=== PATIENT | female | born 1930 | race Caucasian/White ===

== ENCOUNTER 2017-03-29 09:29 | Inpatient (IN) | payer MEDICARE, OTHER ==
[~2017-03-29] VITALS: Ht 165.1 cm; Wt 80.4 kg
[~2017-03-29 09:29] MED LIST: ACET-1079 PO; ACET650S12 RE; ALBU0.084 IN; AMLO5TAB2 PO; ASPI81TA69 PO; BISA10SU12 RE; DIPH25CA39 PO; DOCU-137 PO; FURO40TA4 PO; HALO1TAB17 PO; HYDR4TAB21 PO; HYOSPOW SL; LACT10SO32 PO; LEVO-28 PO; LISI40TA PO; LOPE2TAB99 PO; LORA-352 PO; LORA1TAB12 PO; MENTOIN9 TOP; METH10TA97 PO; METO-281 PO; MOMLQ PO; NAPR500T31 PO; OMEP20TA85 PO; POTA-167 PO; PROMCRY PO; PROMCRY PR; SENN8.6T4 PO; SODIENE26 RE; [UNRECOGNIZED DRUG - CODE] PO; [UNRECOGNIZED DRUG - CODE] PO
[2017-03-29 10:23] LABS: Basophils # (auto) 0.1 uL; Eosinophils # (auto) 0.2 uL; Eosinophils % (auto) 3.3 % (0.0-7.0); Hematocrit 34.4 % (36.0-46.0); Hemoglobin 11.2 g/dL (12.2-16.2); Lymphocytes # (auto) 0.7 uL; Lymphocytes % (auto) 9.7 % (10.0-50.0); Mean Corpuscular Hemoglobin 28.6 pg (28.0-32.0); Mean Corpuscular Hgb Conc. 32.5 g/dL (32.0-36.0); Mean Corpuscular Volume 88.1 fL (80.0-100.0); Monocytes # (auto) 0.9 uL; Monocytes % (auto) 11.9 % (0.0-12.0); Neutrophils # (auto) 5.4 uL; Neutrophils % (auto) 74.1 % (37.0-80.0); Nucleated Red Blood Cells % 0.1 %; Platelet Count (auto) 230 10^3/uL (140-450); Red Cell Distribution Width 18.6 % (11.8-14.3); White Blood Cell 7.2 10^3/uL (4.4-10.8)
[2017-03-29 10:40] LABS: Albumin 3.3 g/dL (3.4-5.0); BUN/Creatinine Ratio 24.3; Bilirubin, Total 0.3 mg/dL (0.2-1.0); Calcium 9.9 mg/dL (8.5-10.1); Potassium 4.3 mmol/L (3.5-5.1); Total Protein 7.4 g/dL (6.4-8.2)
[2017-03-29 11:15] LABS: Urine Bacteria MANY /hpf (None Seen); Urine Blood 2+ /uL (Negative); Urine Mucus MANY (None Seen); Urine Specific Gravity 1.021 (1.001-1.035); Urine WBC 380 /hpf (0 - 5)
[2017-03-29] MEDS ORDERED: cefTRIAXone 1GM/10ml IVPUSH 10 ML IV ONE (12:15)
[2017-03-29 12:47] LABS: Magnesium 2.6 mg/dL (1.6-2.6)
[2017-03-29 12:53] LABS: INR 0.97 (0.9-1.15); Partial Thromboplastin Time 26.8 sec (22.64-33.71); Prothrombin Time 10.6 sec (9.37-12.3)
[2017-03-29] MEDS ORDERED: MORPHINE SULFATE 10 MG/ML INJ 1ML SDV IV PRN (13:45)
[2017-03-29] MEDS ORDERED: PROMETHAZINE HCL 25 MG/ML 1ML IV PRN (13:45)
[2017-03-29] MEDS ORDERED: TEMAZEPAM 15 MG CAP PO PRN (13:45)
[2017-03-29] MEDS ORDERED: NITROGLYCERIN 0.4 MG SL TAB SL PRN (13:45)
[2017-03-29] MEDS ORDERED: LORazepam 0.5 MG TAB PO PRN (13:45)
[2017-03-29] MEDS ORDERED: MORPHINE SULF INJ 2 MG/ML SYRINGE 1ML IV PRN (13:45)
[2017-03-29] MEDS ORDERED: HYDROcodone-ACET 5/325MG TAB PO PRN (13:45)
[2017-03-29] MEDS ORDERED: ACETAMINOPHEN 500 MG TAB PO PRN (13:45)
[2017-03-29] MEDS ORDERED: BISACODYL 10 MG RECT SUPP PR SCH (14:15)
[2017-03-29] MEDS ORDERED: HYDROmorphone HCL 2 MG TAB PO PRN (15:00)
[2017-03-29] MEDS: LACTULOSE 20Gm/30ML SOLN PO SCH (15:00)
[2017-03-29] MEDS ORDERED: PANTOPRAZOLE 40 MG TAB PO ONE (15:15)
[2017-03-29] MEDS: PSYLLIUM PWD 6 GM PKG PO SCH (15:15)
[2017-03-29] MEDS ORDERED: LORATADINE 10 MG TAB PO ONE (15:15)
[2017-03-29] MEDS ORDERED: ASPirin 81 mg TAB PO ONE (15:15)
[2017-03-29] MEDS ORDERED: ENOXAPARIN SOD 40 MG/0.4 ML SYRINGE SC ONE (15:15)
[2017-03-29] MEDS: SODIUM CHLORIDE 0.9% 1,000 ML IV SCH ×2 (15:28→23:44)
[2017-03-29] MEDS ORDERED: HALOPERIDOL 1 MG TAB PO SCH (16:00)
[2017-03-29 17:37] VITALS: BP 128/68
[2017-03-29] MEDS: ALUM & MAG HYDROX-SIMETH LIQ(MAALOX) 30 ML PO SCH (18:30)
[2017-03-29] MEDS: MILK OF MAGNESIA 30ML SUSP PO SCH (18:30)
[2017-03-29] MEDS: ALBUTEROL SULF 2.5 MG/0.5ML(0.5%) NEB SOLN NEB SCH ×2 (20:46→23:43)
[2017-03-29 20:51] VITALS: BP 114/58
[2017-03-29] MEDS: LORazepam 0.5 MG TAB PO SCH (21:20)
[2017-03-29] MEDS: DOCUSATE SOD 100 MG CAP PO SCH (21:20)
[2017-03-29] MEDS: METHADONE HCL 10 MG TAB PO SCH (21:20)
[2017-03-29] MEDS: SENNOSIDES DOCUSATE SODIUM PO SCH (21:32)
[2017-03-29] MEDS ORDERED: LORATADINE 10 MG TAB PO SCH (22:00)
[2017-03-29 22:25] VITALS: BP 119/60
[2017-03-30] MEDS: ALUM & MAG HYDROX-SIMETH LIQ(MAALOX) 30 ML PO SCH ×5 (02:00→18:00)
[2017-03-30] MEDS: MILK OF MAGNESIA 30ML SUSP PO SCH ×3 (02:21→10:44)
[2017-03-30 04:48] VITALS: BP 115/67
[2017-03-30] MEDS ORDERED: SODIUM CHLORIDE 0.9 % NEB SOLN 3ML NEB ONE ×2 (05:21→08:34)
[2017-03-30] MEDS: METHADONE HCL 10 MG TAB PO SCH ×3 (06:30→21:15)
[2017-03-30] MEDS: DOCUSATE SOD 100 MG CAP PO SCH ×3 (06:30→21:14)
[2017-03-30] MEDS: ALBUTEROL SULF 2.5 MG/0.5ML(0.5%) NEB SOLN NEB SCH ×3 (07:08→19:51)
[2017-03-30 07:18] LABS: Basophils # (auto) 0.1 uL; Eosinophils # (auto) 0.2 uL; Eosinophils % (auto) 2.6 % (0.0-7.0); Hematocrit 31.3 % (36.0-46.0); Hemoglobin 10.2 g/dL (12.2-16.2); Lymphocytes # (auto) 0.6 uL; Lymphocytes % (auto) 10.2 % (10.0-50.0); Mean Corpuscular Hemoglobin 28.8 pg (28.0-32.0); Mean Corpuscular Hgb Conc. 32.4 g/dL (32.0-36.0); Mean Corpuscular Volume 88.9 fL (80.0-100.0); Monocytes # (auto) 0.7 uL; Monocytes % (auto) 11.8 % (0.0-12.0); Neutrophils # (auto) 4.4 uL; Neutrophils % (auto) 74.4 % (37.0-80.0); Nucleated Red Blood Cells % 0.1 %; Platelet Count (auto) 203 10^3/uL (140-450); Red Blood Cells 3.53 10^6/uL (4.0-5.20); Red Cell Distribution Width 18.1 % (11.8-14.3); White Blood Cell 5.9 10^3/uL (4.4-10.8)
[2017-03-30 07:42] LABS: Albumin 2.9 g/dL (3.4-5.0); BUN/Creatinine Ratio 28.7; Bilirubin, Total 0.3 mg/dL (0.2-1.0); Calcium 9.5 mg/dL (8.5-10.1); Potassium 4.5 mmol/L (3.5-5.1); Total Protein 6.7 g/dL (6.4-8.2)
[2017-03-30 09:00] VITALS: BP 128/61
[2017-03-30] MEDS: SENNOSIDES DOCUSATE SODIUM PO SCH ×2 (10:00→21:19)
[2017-03-30] MEDS: cefTRIAXone 1GM/10ml IVPUSH 10 ML IV SCH (10:42)
[2017-03-30] MEDS: SODIUM CHLORIDE 0.9% 1,000 ML IV SCH ×2 (10:42→20:51)
[2017-03-30] MEDS: LORATADINE 10 MG TAB PO SCH (10:43)
[2017-03-30] MEDS: LACTULOSE 20Gm/30ML SOLN PO SCH (10:43)
[2017-03-30] MEDS: ASPirin 81 mg TAB PO SCH (10:43)
[2017-03-30] MEDS: PSYLLIUM PWD 6 GM PKG PO SCH (10:44)
[2017-03-30] MEDS: ENOXAPARIN SOD 40 MG/0.4 ML SYRINGE SC SCH (10:45)
[2017-03-30] MEDS: PANTOPRAZOLE 40 MG TAB PO SCH (10:45)
[2017-03-30 13:00] VITALS: BP 123/63
[2017-03-30] MEDS ORDERED: LEVOFLOXACIN 500MG 100 ML IV ONE (16:00)
[2017-03-30] MEDS ORDERED: SODIUM CHLORIDE 0.9% 1,000 ML IV ONE (16:00)
[2017-03-30 16:59] VITALS: BP 134/49
[2017-03-30] MEDS ORDERED: MORPHINE SULFATE 4 MG/ML SYR/VIAL IV PRN ×2 (20:00)
[2017-03-30 22:00] VITALS: BP 140/77
[2017-03-30] MEDS: LORazepam 0.5 MG TAB PO SCH (23:00)
[2017-03-31] MEDS: ALBUTEROL SULF 2.5 MG/0.5ML(0.5%) NEB SOLN NEB SCH ×4 (01:43→20:07)
[2017-03-31] MEDS: ALUM & MAG HYDROX-SIMETH LIQ(MAALOX) 30 ML PO SCH ×5 (02:46→18:00)
[2017-03-31 05:00] VITALS: BP 144/73
[2017-03-31] MEDS: SODIUM CHLORIDE 0.9% 1,000 ML IV SCH ×2 (05:44→15:34)
[2017-03-31] MEDS: METHADONE HCL 10 MG TAB PO SCH ×3 (06:04→21:50)
[2017-03-31] MEDS: DOCUSATE SOD 100 MG CAP PO SCH ×3 (06:04→21:50)
[2017-03-31 07:40] LABS: Basophils # (auto) 0 uL; Basophils % (auto) 0.7 % (0.0-2.0); Eosinophils # (auto) 0.1 uL; Eosinophils % (auto) 1.7 % (0.0-7.0); Hemoglobin 9.7 g/dL (12.2-16.2); Lymphocytes # (auto) 0.5 uL; Lymphocytes % (auto) 8.4 % (10.0-50.0); Mean Corpuscular Hemoglobin 28.8 pg (28.0-32.0); Mean Corpuscular Hgb Conc. 32.5 g/dL (32.0-36.0); Mean Corpuscular Volume 88.5 fL (80.0-100.0); Monocytes # (auto) 0.6 uL; Monocytes % (auto) 10.7 % (0.0-12.0); Neutrophils # (auto) 4.3 uL; Neutrophils % (auto) 78.5 % (37.0-80.0); Platelet Count (auto) 188 10^3/uL (140-450); Red Blood Cells 3.39 10^6/uL (4.0-5.20); Red Cell Distribution Width 17.4 % (11.8-14.3); White Blood Cell 5.5 10^3/uL (4.4-10.8)
[2017-03-31 07:55] LABS: Albumin 2.9 g/dL (3.4-5.0); BUN/Creatinine Ratio 18.8; Bilirubin, Total 0.3 mg/dL (0.2-1.0); Potassium 4.1 mmol/L (3.5-5.1); Total Protein 6.7 g/dL (6.4-8.2)
[2017-03-31 09:00] VITALS: BP 153/47
[2017-03-31] MEDS: SENNOSIDES DOCUSATE SODIUM PO SCH (10:00)
[2017-03-31] MEDS: ENOXAPARIN SOD 40 MG/0.4 ML SYRINGE SC SCH (10:28)
[2017-03-31] MEDS: ASPirin 81 mg TAB PO SCH (10:28)
[2017-03-31] MEDS: PANTOPRAZOLE 40 MG TAB PO SCH (10:28)
[2017-03-31] MEDS: PSYLLIUM PWD 6 GM PKG PO SCH (10:28)
[2017-03-31] MEDS: LORATADINE 10 MG TAB PO SCH (10:28)
[2017-03-31] MEDS: LEVOFLOXACIN 500MG 100 ML IV SCH (10:56)
[2017-03-31] MEDS: cefTRIAXone 1GM/10ml IVPUSH 10 ML IV SCH (10:56)
[2017-03-31] MEDS: HALOPERIDOL 1 MG TAB PO PRN ×2 (11:43→17:02)
[2017-03-31 13:00] VITALS: BP 144/80
[2017-03-31] MEDS ORDERED: HYOSCYAMINE SULF 0.125 MG TAB PO PRN (15:15)
[2017-03-31 16:50] LABS: Urine Bacteria NONE SEEN /hpf (None Seen); Urine Blood 2+ /uL (Negative); Urine Mucus FEW (None Seen); Urine Specific Gravity 1.018 (1.001-1.035); Urine WBC 37 /hpf (0 - 5)
[2017-03-31 17:00] VITALS: BP 148/80
[2017-03-31] MEDS: MULTIPLE VITAMIN TAB PO SCH (18:27)
[2017-03-31] MEDS: ASCORBIC ACID 500 MG TAB PO SCH (21:50)
[2017-03-31] MEDS: LORazepam 0.5 MG TAB PO SCH (21:50)
[2017-03-31] MEDS: SENNA 8.6 MG TAB PO SCH (21:50)
[2017-03-31 22:00] VITALS: BP 153/74
[2017-04-01] MEDS: ALBUTEROL SULF 2.5 MG/0.5ML(0.5%) NEB SOLN NEB SCH ×3 (01:06→13:13)
[2017-04-01] MEDS: SODIUM CHLORIDE 0.9% 1,000 ML IV SCH ×2 (01:44→11:55)
[2017-04-01] MEDS: ALUM & MAG HYDROX-SIMETH LIQ(MAALOX) 30 ML PO SCH ×5 (02:04→18:00)
[2017-04-01 05:00] VITALS: BP 157/89
[2017-04-01] MEDS: DOCUSATE SOD 100 MG CAP PO SCH ×2 (05:50→14:00)
[2017-04-01] MEDS: METHADONE HCL 10 MG TAB PO SCH ×2 (05:51→14:00)
[2017-04-01 08:01] LABS: Basophils # (auto) 0 uL; Eosinophils # (auto) 0.2 uL; Eosinophils % (auto) 3.9 % (0.0-7.0); Hematocrit 31.7 % (36.0-46.0); Hemoglobin 10.3 g/dL (12.2-16.2); Lymphocytes # (auto) 0.6 uL; Lymphocytes % (auto) 12.2 % (10.0-50.0); Mean Corpuscular Hemoglobin 29.1 pg (28.0-32.0); Mean Corpuscular Hgb Conc. 32.4 g/dL (32.0-36.0); Mean Corpuscular Volume 89.7 fL (80.0-100.0); Monocytes # (auto) 0.5 uL; Monocytes % (auto) 10.3 % (0.0-12.0); Neutrophils # (auto) 3.7 uL; Neutrophils % (auto) 72.6 % (37.0-80.0); Nucleated Red Blood Cells % 0.1 %; Platelet Count (auto) 190 10^3/uL (140-450); Red Blood Cells 3.53 10^6/uL (4.0-5.20); Red Cell Distribution Width 17.7 % (11.8-14.3); White Blood Cell 5.2 10^3/uL (4.4-10.8)
[2017-04-01 08:34] LABS: BUN/Creatinine Ratio 13.3; Calcium 9.7 mg/dL (8.5-10.1); Potassium 4.2 mmol/L (3.5-5.1)
[2017-04-01 08:35] LABS: Bilirubin, Total 0.3 mg/dL (0.2-1.0); Total Protein 6.8 g/dL (6.4-8.2)
[2017-04-01 09:00] VITALS: BP 134/65
[2017-04-01] MEDS: SENNA 8.6 MG TAB PO SCH (11:20)
[2017-04-01] MEDS: MULTIPLE VITAMIN TAB PO SCH (11:36)
[2017-04-01] MEDS: ASCORBIC ACID 500 MG TAB PO SCH (11:36)
[2017-04-01] MEDS: LORATADINE 10 MG TAB PO SCH (11:37)
[2017-04-01] MEDS: PANTOPRAZOLE 40 MG TAB PO SCH (11:37)
[2017-04-01] MEDS: ASPirin 81 mg TAB PO SCH (11:37)
[2017-04-01] MEDS: cefTRIAXone 1GM/10ml IVPUSH 10 ML IV SCH (11:38)
[2017-04-01] MEDS: LEVOFLOXACIN 500MG 100 ML IV SCH (11:38)
[2017-04-01] MEDS: ENOXAPARIN SOD 40 MG/0.4 ML SYRINGE SC SCH (11:55)
[2017-04-01] MEDS: PSYLLIUM PWD 6 GM PKG PO SCH (12:24)
[2017-04-01 13:00] VITALS: BP 138/68
[2017-04-01 15:40] VITALS: BP 138/81
[2017-04-01 17:00] VITALS: BP 160/80
== END 2017-04-01 18:45 | disposition home or self-care (01) | DRG 871 ==
LOC: ER 09:29 → EDBD 09:29 → TELE 09:30 → TELE-EAST 16:46
PROVIDERS: ADMIT Internal Medicine; ATTEND Family Medicine
DX: A41.9 Sepsis, unspecified organism (principal); G93.41 Metabolic encephalopathy; E11.22 Type 2 diabetes mellitus with diabetic chronic kidney disease; E11.51 Type 2 diabetes mellitus with diabetic peripheral angiopathy without gangrene; N39.0 Urinary tract infection, site not specified; D63.8 Anemia in other chronic diseases classified elsewhere; F03.90 Unspecified dementia, unspecified severity, without behavioral disturbance, psychotic disturbance, mood disturbance, and anxiety; N18.3 Chronic kidney disease, stage 3 (moderate); F32.9 Major depressive disorder, single episode, unspecified; F41.9 Anxiety disorder, unspecified; I12.9 Hypertensive chronic kidney disease with stage 1 through stage 4 chronic kidney disease, or unspecified chronic kidney disease; Z66 Do not resuscitate; E78.00 Pure hypercholesterolemia, unspecified; E86.0 Dehydration; G89.4 Chronic pain syndrome; Z80.0 Family history of malignant neoplasm of digestive organs; Z86.718 Personal history of other venous thrombosis and embolism; Z89.511 Acquired absence of right leg below knee; Z89.612 Acquired absence of left leg above knee; Z90.710 Acquired absence of both cervix and uterus; Z90.49 Acquired absence of other specified parts of digestive tract; Z87.891 Personal history of nicotine dependence; Z88.2 Allergy status to sulfonamides; Z88.8 Allergy status to other drugs, medicaments and biological substances; Z79.899 Other long term (current) drug therapy; Z79.82 Long term (current) use of aspirin
CPT/HCPCS: 36415; 51702; 70450; 71045; 80053; 81001; 82962; 83735; 84484; 85025; 85610; 85730; 87040; 87086; 93005; 94640; 94761; 96361; 96372; 96374; J1956

== ENCOUNTER 2017-04-03 13:41 | Inpatient (IN) | payer MEDICARE, OTHER ==
[~2017-04-03] VITALS: Ht 154.9 cm; Wt 74.9 kg
[2017-04-03] MEDS ORDERED: SODIUM CHLORIDE 0.9% 1,000 ML IV ONE (13:51)
[2017-04-03 14:33] LABS: Basophils # (auto) 0.1 uL; Basophils % (auto) 0.9 % (0.0-2.0); Eosinophils # (auto) 0.2 uL; Eosinophils % (auto) 2.8 % (0.0-7.0); Hematocrit 36.9 % (36.0-46.0); Hemoglobin 11.6 g/dL (12.2-16.2); Lymphocytes # (auto) 0.7 uL; Lymphocytes % (auto) 9.8 % (10.0-50.0); Mean Corpuscular Hgb Conc. 31.3 g/dL (32.0-36.0); Mean Corpuscular Volume 89.4 fL (80.0-100.0); Monocytes # (auto) 0.8 uL; Neutrophils # (auto) 5.6 uL; Neutrophils % (auto) 75.5 % (37.0-80.0); Nucleated Red Blood Cells % 0.2 %; Platelet Count (auto) 256 10^3/uL (140-450); Red Blood Cells 4.13 10^6/uL (4.0-5.20); Red Cell Distribution Width 17.4 % (11.8-14.3); White Blood Cell 7.4 10^3/uL (4.4-10.8)
[2017-04-03 14:59] LABS: Albumin 2.9 g/dL (3.4-5.0); BUN/Creatinine Ratio 13.6; Bilirubin, Total 0.3 mg/dL (0.2-1.0); Calcium 9.6 mg/dL (8.5-10.1); Magnesium 2.7 mg/dL (1.6-2.6); Total Protein 6.9 g/dL (6.4-8.2)
[2017-04-03] MEDS ORDERED: cefTRIAXone 1GM/10ml IVPUSH 10 ML IV ONE (18:15)
[2017-04-03] MEDS ORDERED: ACETAMINOPHEN 325 MG TAB PO PRN (18:30)
[2017-04-03] MEDS ORDERED: LORazepam 0.5 MG TAB PO PRN (18:30)
[2017-04-03] MEDS ORDERED: ONDANSETRON HCL 4 MG/2 ML VIAL IV PRN (18:30)
[2017-04-03] MEDS ORDERED: HYDROcodone-ACET 5/325MG TAB PO PRN (18:30)
[2017-04-03] MEDS ORDERED: DOCUSATE SOD 100 MG CAP PO PRN (18:30)
[2017-04-03] MEDS ORDERED: ALUM & MAG HYDROX-SIMETH LIQ(MAALOX) 30 ML PO PRN (18:30)
[2017-04-03] MEDS ORDERED: METOCLOPRAMIDE HCL 10 MG TAB PO PRN (18:30)
[2017-04-03] MEDS ORDERED: MORPHINE SULFATE 4 MG/ML SYR/VIAL IV PRN (18:30)
[2017-04-03] MEDS ORDERED: diphenhdrAMINE HCL 25 MG CAP PO PRN (18:30)
[2017-04-03] MEDS ORDERED: ACETAMINOPHEN 650 MG RECT SUPP PR PRN (18:30)
[2017-04-03 21:12] VITALS: BP 150/84
[2017-04-03 22:00] VITALS: BP 149/78
[2017-04-03] MEDS: MORPHINE SULF 15mg ER tab PO SCH (22:00)
[2017-04-03] MEDS: PREGABALIN 25 MG CAP PO SCH (22:28)
[2017-04-03] MEDS: SODIUM CHLOR 0.9% PF (SALINE LOCK) 10ML VIAL IV SCH (22:28)
[2017-04-03] MEDS: ATORVASTATIN 20 MG TAB PO SCH (22:28)
[2017-04-03] MEDS: FAMOTIDINE 20 MG TAB PO SCH (22:30)
[2017-04-04] VITALS (7 sets, daily range): BP systolic 134–167; BP diastolic 69–94
[2017-04-04] MEDS: ALBUTEROL SULF 2.5 MG/0.5ML(0.5%) NEB SOLN NEB SCH ×4 (00:48→19:18)
[2017-04-04] MEDS: SODIUM CHLOR 0.9% PF (SALINE LOCK) 10ML VIAL IV SCH ×3 (05:41→22:16)
[2017-04-04 05:58] LABS: Basophils # (auto) 0.1 uL; Eosinophils # (auto) 0.2 uL; Eosinophils % (auto) 3.3 % (0.0-7.0); Hematocrit 34.1 % (36.0-46.0); Hemoglobin 11.2 g/dL (12.2-16.2); Lymphocytes # (auto) 0.6 uL; Lymphocytes % (auto) 10.8 % (10.0-50.0); Mean Corpuscular Hemoglobin 28.7 pg (28.0-32.0); Mean Corpuscular Hgb Conc. 32.9 g/dL (32.0-36.0); Mean Corpuscular Volume 87.3 fL (80.0-100.0); Monocytes # (auto) 0.7 uL; Monocytes % (auto) 11.7 % (0.0-12.0); Neutrophils # (auto) 4.4 uL; Neutrophils % (auto) 73.2 % (37.0-80.0); Platelet Count (auto) 239 10^3/uL (140-450); Red Cell Distribution Width 17.4 % (11.8-14.3)
[2017-04-04 06:14] LABS: Albumin 2.8 g/dL (3.4-5.0); Calcium 9.9 mg/dL (8.5-10.1)
[2017-04-04 06:17] LABS: BUN/Creatinine Ratio 20.3
[2017-04-04 06:19] LABS: Bilirubin, Total 0.2 mg/dL (0.2-1.0); Total Protein 6.3 g/dL (6.4-8.2)
[2017-04-04] MEDS: POLYETHYLENE GLYCOL 17 GM PWDR PO SCH (10:00)
[2017-04-04] MEDS: [UNRECOGNIZED DRUG - OTHER] PO SCH (10:00)
[2017-04-04] MEDS: PREGABALIN 25 MG CAP PO SCH ×2 (10:00→22:17)
[2017-04-04] MEDS: cefTRIAXone 1GM/10ml IVPUSH 10 ML IV SCH (10:21)
[2017-04-04] MEDS: FAMOTIDINE 20 MG TAB PO SCH ×2 (10:37→22:18)
[2017-04-04] MEDS: POTASSIUM CHL 20 Meq TABLET PO SCH (10:37)
[2017-04-04] MEDS: MULTIPLE VITAMIN TAB PO SCH (10:37)
[2017-04-04] MEDS: MORPHINE SULF 15mg ER tab PO SCH ×2 (10:37→22:18)
[2017-04-04] MEDS: LORATADINE 10 MG TAB PO SCH (10:37)
[2017-04-04] MEDS: ASPirin-EC 81 mg tab PO SCH (10:37)
[2017-04-04] MEDS: amLODIPine BESYLATE 5 MG TAB PO SCH (10:38)
[2017-04-04] MEDS: FUROSEMIDE 20 MG TAB PO SCH (10:38)
[2017-04-04] MEDS: LISINOPRIL 20 MG TAB PO SCH (10:39)
[2017-04-04] MEDS: METOPROLOL SUCCINATE XL 50 MG TAB PO SCH (10:39)
[2017-04-04] MEDS: ENOXAPARIN SOD 40 MG/0.4 ML SYRINGE SC SCH (10:40)
[2017-04-04] MEDS: ATORVASTATIN 20 MG TAB PO SCH (22:16)
[2017-04-05 04:56] VITALS: BP 157/73
[2017-04-05] MEDS: ALBUTEROL SULF 2.5 MG/0.5ML(0.5%) NEB SOLN NEB SCH ×4 (05:40→19:24)
[2017-04-05] MEDS: SODIUM CHLOR 0.9% PF (SALINE LOCK) 10ML VIAL IV SCH ×2 (06:12→21:52)
[2017-04-05 06:15] LABS: Basophils # (auto) 0.1 uL; Basophils % (auto) 1.3 % (0.0-2.0); Eosinophils # (auto) 0.2 uL; Eosinophils % (auto) 2.8 % (0.0-7.0); Hematocrit 35.8 % (36.0-46.0); Hemoglobin 11.8 g/dL (12.2-16.2); Lymphocytes # (auto) 0.7 uL; Lymphocytes % (auto) 10.1 % (10.0-50.0); Mean Corpuscular Hemoglobin 28.8 pg (28.0-32.0); Mean Corpuscular Volume 87.2 fL (80.0-100.0); Monocytes # (auto) 0.7 uL; Monocytes % (auto) 10.7 % (0.0-12.0); Neutrophils # (auto) 4.9 uL; Neutrophils % (auto) 75.1 % (37.0-80.0); Nucleated Red Blood Cells % 0.1 %; Platelet Count (auto) 267 10^3/uL (140-450); Red Cell Distribution Width 17.7 % (11.8-14.3); White Blood Cell 6.5 10^3/uL (4.4-10.8)
[2017-04-05 06:32] LABS: BUN/Creatinine Ratio 19.1
[2017-04-05 08:00] VITALS: BP 150/76
[2017-04-05 09:00] VITALS: BP 150/76
[2017-04-05] MEDS: FUROSEMIDE 20 MG TAB PO SCH (09:58)
[2017-04-05] MEDS: FAMOTIDINE 20 MG TAB PO SCH ×2 (09:59→21:58)
[2017-04-05] MEDS: amLODIPine BESYLATE 5 MG TAB PO SCH (09:59)
[2017-04-05] MEDS: PREGABALIN 25 MG CAP PO SCH ×2 (09:59→21:58)
[2017-04-05] MEDS: LORATADINE 10 MG TAB PO SCH (10:00)
[2017-04-05] MEDS: ASPirin-EC 81 mg tab PO SCH (10:00)
[2017-04-05] MEDS: POTASSIUM CHL 20 Meq TABLET PO SCH (10:00)
[2017-04-05] MEDS: [UNRECOGNIZED DRUG - OTHER] PO SCH (10:00)
[2017-04-05] MEDS: MULTIPLE VITAMIN TAB PO SCH (10:00)
[2017-04-05] MEDS: MORPHINE SULF 15mg ER tab PO SCH ×2 (10:00→21:58)
[2017-04-05] MEDS: ENOXAPARIN SOD 40 MG/0.4 ML SYRINGE SC SCH (10:02)
[2017-04-05] MEDS: METOPROLOL SUCCINATE XL 50 MG TAB PO SCH (10:02)
[2017-04-05] MEDS: LISINOPRIL 20 MG TAB PO SCH (10:02)
[2017-04-05] MEDS: cefTRIAXone 1GM/10ml IVPUSH 10 ML IV SCH (10:03)
[2017-04-05] MEDS: POLYETHYLENE GLYCOL 17 GM PWDR PO SCH (10:13)
[2017-04-05 13:00] VITALS: BP 167/77
[2017-04-05 17:00] VITALS: BP 143/69
[2017-04-05] MEDS: ATORVASTATIN 20 MG TAB PO SCH (21:58)
[2017-04-05 22:00] VITALS: BP 103/61
[2017-04-06] MEDS: ALBUTEROL SULF 2.5 MG/0.5ML(0.5%) NEB SOLN NEB SCH ×5 (00:16→19:46)
[2017-04-06 05:08] VITALS: BP 157/79
[2017-04-06] MEDS: SODIUM CHLOR 0.9% PF (SALINE LOCK) 10ML VIAL IV SCH ×3 (06:16→22:45)
[2017-04-06 07:01] LABS: Basophils # (auto) 0.1 uL; Eosinophils # (auto) 0.2 uL; Eosinophils % (auto) 2.7 % (0.0-7.0); Hematocrit 37.2 % (36.0-46.0); Hemoglobin 12.1 g/dL (12.2-16.2); Lymphocytes # (auto) 0.7 uL; Lymphocytes % (auto) 10.7 % (10.0-50.0); Mean Corpuscular Hemoglobin 28.3 pg (28.0-32.0); Mean Corpuscular Hgb Conc. 32.5 g/dL (32.0-36.0); Mean Corpuscular Volume 87.1 fL (80.0-100.0); Monocytes # (auto) 0.7 uL; Monocytes % (auto) 10.6 % (0.0-12.0); Neutrophils # (auto) 4.8 uL; Nucleated Red Blood Cells % 0.1 %; Platelet Count (auto) 315 10^3/uL (140-450); Red Blood Cells 4.27 10^6/uL (4.0-5.20); Red Cell Distribution Width 17.7 % (11.8-14.3); White Blood Cell 6.4 10^3/uL (4.4-10.8)
[2017-04-06 07:22] LABS: BUN/Creatinine Ratio 22.2; Calcium 10.4 mg/dL (8.5-10.1); Potassium 3.9 mmol/L (3.5-5.1)
[2017-04-06 08:00] VITALS: BP 162/73
[2017-04-06] MEDS: BOOST PLUS 8 ounce PO SCH ×3 (08:00→17:50)
[2017-04-06 09:00] VITALS: BP 162/73
[2017-04-06] MEDS: [UNRECOGNIZED DRUG - OTHER] PO SCH (10:00)
[2017-04-06] MEDS: FAMOTIDINE 20 MG TAB PO SCH ×2 (11:10→22:00)
[2017-04-06] MEDS: LORATADINE 10 MG TAB PO SCH (11:11)
[2017-04-06] MEDS: FUROSEMIDE 20 MG TAB PO SCH (11:11)
[2017-04-06] MEDS: POTASSIUM CHL 20 Meq TABLET PO SCH (11:12)
[2017-04-06] MEDS: ASPirin-EC 81 mg tab PO SCH (11:12)
[2017-04-06] MEDS: amLODIPine BESYLATE 5 MG TAB PO SCH (11:13)
[2017-04-06] MEDS: LISINOPRIL 20 MG TAB PO SCH (11:14)
[2017-04-06] MEDS: METOPROLOL SUCCINATE XL 50 MG TAB PO SCH (11:16)
[2017-04-06] MEDS: ENOXAPARIN SOD 40 MG/0.4 ML SYRINGE SC SCH (11:17)
[2017-04-06] MEDS: POLYETHYLENE GLYCOL 17 GM PWDR PO SCH (11:17)
[2017-04-06] MEDS: PREGABALIN 25 MG CAP PO SCH ×2 (11:41→22:00)
[2017-04-06] MEDS: MORPHINE SULF 15mg ER tab PO SCH ×3 (11:42→22:01)
[2017-04-06] MEDS: MULTIPLE VITAMIN TAB PO SCH (12:29)
[2017-04-06] MEDS: cefTRIAXone 1GM/10ml IVPUSH 10 ML IV SCH (12:29)
[2017-04-06 13:00] VITALS: BP 145/75
[2017-04-06 16:37] VITALS: BP 148/67
[2017-04-06 16:54] LABS: Urine Bacteria NONE SEEN /hpf (None Seen); Urine Blood Negative /uL (Negative); Urine Mucus FEW (None Seen); Urine Specific Gravity 1.017 (1.001-1.035); Urine WBC 3 /hpf (0 - 5)
[2017-04-06 20:00] VITALS: BP 126/67
[2017-04-06] MEDS: ATORVASTATIN 20 MG TAB PO SCH ×2 (22:00→22:01)
[2017-04-07 05:35] VITALS: BP 138/86
[2017-04-07] MEDS: SODIUM CHLOR 0.9% PF (SALINE LOCK) 10ML VIAL IV SCH (06:24)
[2017-04-07] MEDS: ALBUTEROL SULF 2.5 MG/0.5ML(0.5%) NEB SOLN NEB SCH ×2 (07:00→12:55)
[2017-04-07 08:00] VITALS: BP 132/70
[2017-04-07 08:26] VITALS: BP 132/70
[2017-04-07] MEDS: cefTRIAXone 1GM/10ml IVPUSH 10 ML IV SCH (09:00)
[2017-04-07] MEDS: PREGABALIN 25 MG CAP PO SCH (09:01)
[2017-04-07] MEDS: amLODIPine BESYLATE 5 MG TAB PO SCH (09:02)
[2017-04-07] MEDS: METOPROLOL SUCCINATE XL 50 MG TAB PO SCH (09:04)
[2017-04-07] MEDS: MORPHINE SULF 15mg ER tab PO SCH (09:05)
[2017-04-07] MEDS: MULTIPLE VITAMIN TAB PO SCH (09:05)
[2017-04-07] MEDS: BOOST PLUS 8 ounce PO SCH (09:08)
[2017-04-07] MEDS: LORATADINE 10 MG TAB PO SCH (09:09)
[2017-04-07] MEDS: FUROSEMIDE 20 MG TAB PO SCH (09:10)
[2017-04-07] MEDS: ASPirin-EC 81 mg tab PO SCH (09:10)
[2017-04-07] MEDS: POTASSIUM CHL 20 Meq TABLET PO SCH (09:10)
[2017-04-07] MEDS: POLYETHYLENE GLYCOL 17 GM PWDR PO SCH (09:10)
[2017-04-07] MEDS: ENOXAPARIN SOD 40 MG/0.4 ML SYRINGE SC SCH (09:12)
[2017-04-07] MEDS: LISINOPRIL 20 MG TAB PO SCH (09:12)
[2017-04-07 10:57] VITALS: BP 132/70
[2017-04-07 11:45] VITALS: BP 130/73
[2017-04-07 12:24] LABS: Urine Bacteria FEW /hpf (None Seen); Urine Blood Negative /uL (Negative); Urine Mucus FEW (None Seen); Urine Specific Gravity 1.012 (1.001-1.035); Urine WBC 2 /hpf (0 - 5)
[2017-04-07 17:01] VITALS: BP 127/76
== END 2017-04-07 18:20 | DRG 71 ==
LOC: ER 13:41 → EDBD 13:41 → OVERFLOW 13:42 → WEST WING 20:53
PROVIDERS: ADMIT Internal Medicine; ATTEND Internal Medicine
DX: G93.41 Metabolic encephalopathy (principal); G45.9 Transient cerebral ischemic attack, unspecified; G62.9 Polyneuropathy, unspecified; E83.41 Hypermagnesemia; D63.8 Anemia in other chronic diseases classified elsewhere; F03.90 Unspecified dementia, unspecified severity, without behavioral disturbance, psychotic disturbance, mood disturbance, and anxiety; J44.9 Chronic obstructive pulmonary disease, unspecified; F41.9 Anxiety disorder, unspecified; E78.5 Hyperlipidemia, unspecified; F32.9 Major depressive disorder, single episode, unspecified; Z66 Do not resuscitate; Z51.5 Encounter for palliative care; M21.942 Unspecified acquired deformity of hand, left hand; M21.941 Unspecified acquired deformity of hand, right hand; G89.4 Chronic pain syndrome; I73.9 Peripheral vascular disease, unspecified; I10 Essential (primary) hypertension; Z80.0 Family history of malignant neoplasm of digestive organs; Z83.3 Family history of diabetes mellitus; Z86.718 Personal history of other venous thrombosis and embolism; Z87.440 Personal history of urinary (tract) infections; Z89.511 Acquired absence of right leg below knee; Z87.891 Personal history of nicotine dependence; Z89.612 Acquired absence of left leg above knee; Z90.710 Acquired absence of both cervix and uterus; Z88.2 Allergy status to sulfonamides; Z79.899 Other long term (current) drug therapy; Z90.49 Acquired absence of other specified parts of digestive tract; Z79.82 Long term (current) use of aspirin; Z71.3 Dietary counseling and surveillance
CPT/HCPCS: 36415; 70450; 70551; 71045; 80048; 80053; 81001; 83605; 83735; 84484; 85025; 87040; 87081; 87086; 93005; 94640; 94761; 96361; 96374; 96376